=== PATIENT | male | born 1945 | race Caucasian/White ===

== ENCOUNTER 2022-05-18 23:51 | Inpatient (IN) ==
[2022-05-19] MEDS ORDERED: 0.9 % Sodium Chloride 1,000 ML IVC ONE ×2 (00:50→01:23)
[2022-05-19 01:06] LABS: Basophils % 0.2 %; Eosinophils # 0.1 K/mcL (0.0-0.6); Eosinophils % 0.5 %; Hematocrit 38.4 % (37.5-50.1); Hemoglobin 11.7 g/dL (12.9-16.9); Immature Granulocytes % 0.8 % (0-4); Lymphocytes # 0.6 K/mcL (0.6-4.6); Mean Corpuscular HGB Conc 30.5 g/dL (31.6-35.5); Mean Corpuscular Hemoglobin 27.9 pg (28.0-33.3); Mean Corpuscular Volume 91.4 fL (83.0-100.0); Mean Platelet Volume 11.9 fL (9.4-12.4); Monocytes # 0.8 K/mcL (0.0-1.3); Monocytes % 5.6 %; Neutrophils # 13.2 K/mcL (1.6-8.9); Platelet Count 318 K/mcL (140-400); Red Cell Distribution Width 15.9 % (11.5-14.5); Segmented Neutrophils % 88.9 %; White Blood Count 14.8 K/mcL (4.3-11.1)
[2022-05-19 01:18] LABS: VBG HCO3 21 mEq/L (21-27); VBG PCO2 45 mmHg (41-51); VBG PH 7.29 pH Units (7.32-7.42); VBG PO2 96 mmHg (25-50)
[2022-05-19 01:21] LABS: Potassium 4.7 mEq/L (3.5-5.1)
[2022-05-19 01:22] LABS: Albumin 3.7 g/dL (3.5-5.7); Albumin/Globulin Ratio 1.1 (1.1-2.2); Bilirubin,Total 0.6 mg/dL (0.3-1.0); Calcium 8.3 mg/dL (8.6-10.3); Globulin 3.4 g/dL (2.4-3.5); Total Protein 7.1 g/dL (6.4-8.9)
[2022-05-19 01:30] LABS: Troponin I 0.04 ng/mL (< 0.04)
[2022-05-19] MEDS ORDERED: Ondansetron 4 MG/2 ML VIAL IVP PRN (02:09)
[2022-05-19] MEDS ORDERED: Acetaminophen 325 MG TABLET PO PRN (02:09)
[2022-05-19] MEDS ORDERED: Melatonin 3 MG TABLET PO PRN (02:09)
[2022-05-19] MEDS ORDERED: Naloxone 0.4 MG/ML INJ IVP PRN (02:09)
[2022-05-19] MEDS ORDERED: Insulin Regular, Human 100 UNIT/ML IV PRN ×3 (02:14→23:50)
[2022-05-19] MEDS ORDERED: D5% in 0.45% NACL w KCl 20 MEQ/1,000 ML MLS IVC PRN ×2 (02:51→23:50)
[2022-05-19] MEDS ORDERED: D5% in 0.45% NACL 1,000 ML IVC PRN ×2 (02:51→23:50)
[2022-05-19] MEDS ORDERED: 0.9 % Sodium Chloride 1,000 ML IVC PRN (03:00)
[2022-05-19] MEDS ORDERED: 0.45 % Sodium Chloride w/KCl 20 MEQ/1,000 ML MLS IVC SCH (03:00)
[2022-05-19 04:54] LABS: Calcium 7.6 mg/dL (8.6-10.3); Magnesium 1.9 mg/dL (1.6-2.6); Potassium 3.6 mEq/L (3.5-5.1)
[2022-05-19] MEDS: *HR* Heparin 5,000 UNIT/ML VIAL SQ SCH ×2 (04:56→13:06)
[2022-05-19] MEDS: 0.9 % Sodium Chloride w KCl 20 MEQ/1,000 ML MLS IVC SCH ×4 (04:59→13:07)
[2022-05-19 05:53] LABS: Basophils % 0.2 %; Eosinophils # 0.3 K/mcL (0.0-0.6); Eosinophils % 1.9 %; Hematocrit 33.8 % (37.5-50.1); Hemoglobin 10.6 g/dL (12.9-16.9); Immature Granulocytes % 0.8 % (0-4); Mean Corpuscular HGB Conc 31.4 g/dL (31.6-35.5); Mean Corpuscular Hemoglobin 27.4 pg (28.0-33.3); Mean Corpuscular Volume 87.3 fL (83.0-100.0); Mean Platelet Volume 11.3 fL (9.4-12.4); Monocytes # 1.1 K/mcL (0.0-1.3); Monocytes % 6.6 %; Neutrophils # 13.4 K/mcL (1.6-8.9); Platelet Count 281 K/mcL (140-400); Red Blood Count 3.87 M/mcL (4.19-5.50); Red Cell Distribution Width 15.6 % (11.5-14.5); Segmented Neutrophils % 84.5 %; White Blood Count 15.9 K/mcL (4.3-11.1)
[2022-05-19 05:59] LABS: VBG HCO3 19 mEq/L (21-27); VBG PCO2 43 mmHg (41-51); VBG PH 7.26 pH Units (7.32-7.42); VBG PO2 146 mmHg (25-50)
[2022-05-19 09:08] LABS: Calcium 8.4 mg/dL (8.6-10.3); Potassium 3.2 mEq/L (3.5-5.1)
[2022-05-19 09:21] LABS: Hepatitis B Surface Antibody < 3.10 mIU/mL
[2022-05-19 09:33] LABS: Hepatitis B Surface Antigen Nonreactive (Nonreactive)
[2022-05-19 12:08] LABS: Calcium 8.2 mg/dL (8.6-10.3); Potassium 3.3 mEq/L (3.5-5.1)
[2022-05-19] MEDS: *HR* Dextrose 50 % in Water (Syg) 50 ML SYRINGE IVP PRN (13:06)
[2022-05-19] MEDS: INSULIN PUMP MC PRN ×3 (13:44→19:58)
[2022-05-19 17:25] LABS: Potassium 4.3 mEq/L (3.5-5.1)
[2022-05-19 17:26] LABS: Calcium 7.9 mg/dL (8.6-10.3)
[2022-05-19] MEDS ORDERED: amLODIPine 5 MG TABLET PO SCH (18:00)
[2022-05-19] MEDS ORDERED: Loratadine 10 MG TABLET PO SCH (18:00)
[2022-05-19] MEDS: amLODIPine 5 MG TABLET PO SCH (18:34)
[2022-05-19] MEDS: Famotidine 20 MG TABLET PO SCH (18:34)
[2022-05-19] MEDS: Metoprolol XL (24 HR) Succ 50 MG TAB.ER.24H PO SCH (20:13)
[2022-05-19] MEDS: Apixaban 2.5 MG TABLET PO SCH (20:13)
[2022-05-19] MEDS ORDERED: hydrALAZINE 25 MG TABLET PO SCH (21:00)
[2022-05-19] MEDS ORDERED: Metoprolol XL (24 HR) Succ 50 MG TAB.ER.24H PO SCH (21:00)
[2022-05-19 22:32] LABS: Calcium 7.8 mg/dL (8.6-10.3); Potassium 4.9 mEq/L (3.5-5.1)
[2022-05-20] MEDS: 0.9 % Sodium Chloride w KCl 20 MEQ/1,000 ML MLS IVC SCH ×10 (00:58→21:02)
[2022-05-20] MEDS: hydrALAZINE 25 MG TABLET PO SCH ×3 (00:58→14:39)
[2022-05-20 01:00] LABS: Basophils % 0.3 %; Eosinophils # 1.8 K/mcL (0.0-0.6); Eosinophils % 12.2 %; Hematocrit 35.7 % (37.5-50.1); Hemoglobin 11.5 g/dL (12.9-16.9); Lymphocytes # 1.4 K/mcL (0.6-4.6); Lymphocytes % 9.2 %; Mean Corpuscular HGB Conc 32.2 g/dL (31.6-35.5); Mean Corpuscular Hemoglobin 28.2 pg (28.0-33.3); Mean Corpuscular Volume 87.5 fL (83.0-100.0); Mean Platelet Volume 11.2 fL (9.4-12.4); Monocytes # 1.1 K/mcL (0.0-1.3); Monocytes % 7.4 %; Neutrophils # 10.3 K/mcL (1.6-8.9); Platelet Count 303 K/mcL (140-400); Red Blood Count 4.08 M/mcL (4.19-5.50); Red Cell Distribution Width 15.9 % (11.5-14.5); Segmented Neutrophils % 69.9 %; White Blood Count 14.7 K/mcL (4.3-11.1)
[2022-05-20 01:40] LABS: Calcium 7.7 mg/dL (8.6-10.3); Magnesium 1.8 mg/dL (1.6-2.6); Potassium 5.2 mEq/L (3.5-5.1)
[2022-05-20 05:27] LABS: VBG HCO3 16 mEq/L (21-27); VBG PCO2 32 mmHg (41-51); VBG PO2 217 mmHg (25-50)
[2022-05-20 05:59] LABS: Calcium 7.7 mg/dL (8.6-10.3); Potassium 3.7 mEq/L (3.5-5.1)
[2022-05-20 07:13] LABS: VBG HCO3 22 mEq/L (21-27); VBG PCO2 47 mmHg (41-51); VBG PH 7.28 pH Units (7.32-7.42); VBG PO2 78 mmHg (25-50)
[2022-05-20] MEDS: Loratadine 10 MG TABLET PO SCH (08:07)
[2022-05-20] MEDS: Famotidine 20 MG TABLET PO SCH (08:07)
[2022-05-20] MEDS: Finasteride 5 MG TABLET PO SCH (08:08)
[2022-05-20] MEDS: Apixaban 2.5 MG TABLET PO SCH ×2 (08:08→20:16)
[2022-05-20] MEDS ORDERED: 0.9 % Sodium Chloride 250 ML IVC PRN (08:26)
[2022-05-20] MEDS ORDERED: *HR* Heparin 10,000 UNIT/10 ML VIAL IV PRN (08:26)
[2022-05-20] MEDS ORDERED: 0.9 % Sodium Chloride 2,000 ML PRIME SCH (08:30)
[2022-05-20] MEDS ORDERED: Multivit/Ca/Min/Fe/FA 1 TAB TABLET PO SCH ×2 (09:00)
[2022-05-20 09:07] LABS: VBG HCO3 20 mEq/L (21-27); VBG PCO2 40 mmHg (41-51); VBG PH 7.31 pH Units (7.32-7.42); VBG PO2 187 mmHg (25-50)
[2022-05-20 09:14] LABS: Potassium 3.7 mEq/L (3.5-5.1)
[2022-05-20 10:59] LABS: Phosphorous 5.4 mg/dL (2.7-4.5)
[2022-05-20] MEDS: *HR* Dextrose 50 % in Water (Syg) 50 ML SYRINGE IVP PRN (13:29)
[2022-05-20] MEDS: amLODIPine 5 MG TABLET PO SCH (14:39)
[2022-05-20] MEDS: Metoprolol XL (24 HR) Succ 50 MG TAB.ER.24H PO SCH ×2 (14:40→20:15)
[2022-05-20 15:11] LABS: VBG HCO3 26 mEq/L (21-27); VBG PCO2 41 mmHg (41-51); VBG PH 7.41 pH Units (7.32-7.42); VBG PO2 103 mmHg (25-50)
[2022-05-20 15:44] LABS: Calcium 7.8 mg/dL (8.6-10.3); Potassium 3.6 mEq/L (3.5-5.1)
[2022-05-20] MEDS ORDERED: D5% in Water 1,000 ML IVC PRN (15:53)
[2022-05-20] MEDS ORDERED: *HR* Dextrose 50 % in Water (Syg) 50 ML SYRINGE IVP PRN (15:53)
[2022-05-20] MEDS ORDERED: Dextrose Gel 15 GM/37.5 ML TUBE PO PRN ×2 (15:53)
[2022-05-20] MEDS ORDERED: Insulin DETEMIR 100 UNIT/ML X5UNITS SUBQ SCH (16:15)
[2022-05-20] MEDS: Insulin LISPRO 300 UNITS/3 ML VIAL SUBQ SCH ×2 (16:26→20:16)
[2022-05-20] MEDS ORDERED: Insulin LISPRO 300 UNITS/3 ML VIAL SUBQ SCH (18:00)
[2022-05-21] MEDS: hydrALAZINE 25 MG TABLET PO SCH ×3 (01:02→17:15)
[2022-05-21] MEDS: 0.9 % Sodium Chloride w KCl 20 MEQ/1,000 ML MLS IVC SCH ×2 (01:03→07:27)
[2022-05-21 05:58] LABS: Basophils % 0.4 %; Eosinophils # 1.7 K/mcL (0.0-0.6); Eosinophils % 15.3 %; Hematocrit 36.8 % (37.5-50.1); Hemoglobin 12.1 g/dL (12.9-16.9); Immature Granulocytes % 0.7 % (0-4); Lymphocytes # 1.4 K/mcL (0.6-4.6); Lymphocytes % 12.5 %; Mean Corpuscular HGB Conc 32.9 g/dL (31.6-35.5); Mean Corpuscular Hemoglobin 27.9 pg (28.0-33.3); Monocytes # 1.3 K/mcL (0.0-1.3); Neutrophils # 6.4 K/mcL (1.6-8.9); Platelet Count 248 K/mcL (140-400); Red Blood Count 4.33 M/mcL (4.19-5.50); Red Cell Distribution Width 15.6 % (11.5-14.5); Segmented Neutrophils % 59.1 %; White Blood Count 10.9 K/mcL (4.3-11.1)
[2022-05-21 06:21] LABS: Magnesium 1.8 mg/dL (1.6-2.6); Potassium 3.8 mEq/L (3.5-5.1)
[2022-05-21] MEDS: *HR* Dextrose 50 % in Water (Syg) 50 ML SYRINGE IVP PRN (06:28)
[2022-05-21] MEDS: Insulin LISPRO 300 UNITS/3 ML VIAL SUBQ SCH ×4 (07:31→20:49)
[2022-05-21] MEDS: amLODIPine 5 MG TABLET PO SCH (08:01)
[2022-05-21] MEDS: Finasteride 5 MG TABLET PO SCH (08:02)
[2022-05-21] MEDS: Famotidine 20 MG TABLET PO SCH (08:02)
[2022-05-21] MEDS: Loratadine 10 MG TABLET PO SCH (08:02)
[2022-05-21] MEDS: Metoprolol XL (24 HR) Succ 50 MG TAB.ER.24H PO SCH ×2 (08:02→20:42)
[2022-05-21] MEDS: Apixaban 2.5 MG TABLET PO SCH ×2 (08:02→20:42)
[2022-05-21] MEDS: Insulin DETEMIR 100 UNIT/ML X5UNITS SUBQ SCH ×2 (09:24→20:42)
[2022-05-22] MEDS: hydrALAZINE 25 MG TABLET PO SCH ×3 (00:45→16:48)
[2022-05-22] MEDS: *HR* Dextrose 50 % in Water (Syg) 50 ML SYRINGE IVP PRN (04:20)
[2022-05-22] MEDS: Loratadine 10 MG TABLET PO SCH (07:58)
[2022-05-22] MEDS: Finasteride 5 MG TABLET PO SCH (07:58)
[2022-05-22] MEDS: Apixaban 2.5 MG TABLET PO SCH ×2 (07:58→22:17)
[2022-05-22] MEDS: Metoprolol XL (24 HR) Succ 50 MG TAB.ER.24H PO SCH ×2 (07:58→22:16)
[2022-05-22] MEDS: Famotidine 20 MG TABLET PO SCH (07:58)
[2022-05-22] MEDS: Insulin LISPRO 300 UNITS/3 ML VIAL SUBQ SCH ×4 (07:58→22:15)
[2022-05-22] MEDS: Insulin DETEMIR 100 UNIT/ML X5UNITS SUBQ SCH (07:58)
[2022-05-22] MEDS: amLODIPine 5 MG TABLET PO SCH (07:59)
[2022-05-22] MEDS ORDERED: *HR* Heparin 10,000 UNIT/10 ML VIAL IV PRN (08:30)
[2022-05-22] MEDS ORDERED: 0.9 % Sodium Chloride 250 ML IVC PRN (08:30)
[2022-05-22 08:47] LABS: Hematocrit 37.3 % (37.5-50.1); Mean Corpuscular HGB Conc 32.2 g/dL (31.6-35.5); Mean Corpuscular Hemoglobin 28.2 pg (28.0-33.3); Mean Corpuscular Volume 87.6 fL (83.0-100.0); Mean Platelet Volume 11.3 fL (9.4-12.4); Platelet Count 239 K/mcL (140-400); Red Blood Count 4.26 M/mcL (4.19-5.50); White Blood Count 12.1 K/mcL (4.3-11.1)
[2022-05-22 08:59] LABS: Calcium 8.5 mg/dL (8.6-10.3); Potassium 4.3 mEq/L (3.5-5.1)
[2022-05-22 09:51] LABS: Eosinophils # 2.4 K/mcL (0.0-0.6); Lymphocytes # 2.2 K/mcL (0.6-4.6); Monocytes # 0.5 K/mcL (0.0-1.3)
[2022-05-22 09:52] LABS: Platelet Estimate Normal (Normal); Poikilocytosis 1+ (Not Present)
[2022-05-23] MEDS: hydrALAZINE 25 MG TABLET PO SCH ×2 (01:29→08:37)
[2022-05-23 07:27] VITALS: BP 178/70; PULSE 66; TEMP 98.7; O2SAT 95
[2022-05-23 08:03] LABS: Red Cell Distribution Width 15.9 % (11.5-14.5)
[2022-05-23 08:05] LABS: Hematocrit 31.1 % (37.5-50.1); Hemoglobin 9.9 g/dL (12.9-16.9); Immature Platelets 8.2 % (1.1-6.1); Mean Corpuscular HGB Conc 31.8 g/dL (31.6-35.5); Mean Corpuscular Hemoglobin 27.9 pg (28.0-33.3); Mean Corpuscular Volume 87.6 fL (83.0-100.0); Mean Platelet Volume 12.1 fL (9.4-12.4); Red Blood Count 3.55 M/mcL (4.19-5.50); White Blood Count 8.4 K/mcL (4.3-11.1)
[2022-05-23 08:27] LABS: Calcium 8.3 mg/dL (8.6-10.3); Potassium 4.4 mEq/L (3.5-5.1)
[2022-05-23] MEDS: Metoprolol XL (24 HR) Succ 50 MG TAB.ER.24H PO SCH (08:36)
[2022-05-23] MEDS: Finasteride 5 MG TABLET PO SCH (08:36)
[2022-05-23] MEDS: Apixaban 2.5 MG TABLET PO SCH (08:37)
[2022-05-23] MEDS: amLODIPine 5 MG TABLET PO SCH (08:37)
[2022-05-23] MEDS: Famotidine 20 MG TABLET PO SCH (08:37)
[2022-05-23] MEDS: Loratadine 10 MG TABLET PO SCH (08:37)
[2022-05-23] MEDS: Insulin LISPRO 300 UNITS/3 ML VIAL SUBQ SCH (08:42)
[2022-05-23] MEDS ORDERED: Insulin DETEMIR 100 UNIT/ML X5UNITS SUBQ SCH (09:00)
== END 2022-05-23 12:46 | disposition home or self-care (01) | DRG 919 ==
LOC: 2NNU 23:51 → EMEROOARM 23:51 → SUATTDRO 05-19 02:32 → 2NNU 05-19 04:30 → 3ANU 05-21 14:08
PROVIDERS: ADMIT Internal Medicine; ATTEND Internal Medicine